=== PATIENT | male | born 1975 | race African-American/Black ===

== ENCOUNTER 2020-01-20 19:00 | Emergency (ER) | payer OTHER, SELFPAY ==
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
[2020-01-20 19:21] VITALS: BP 149/92; PULSE 66; RESP 16; TEMP 36.4; O2SAT 100
== END 2020-01-20 19:33 | disposition home or self-care (01) ==
PROVIDERS: Emergency Provider Nurse Practitioner Family
DX: S39.92XA Unspecified injury of lower back, initial encounter (principal); R03.0 Elevated blood-pressure reading, without diagnosis of hypertension; V49.40XA Driver injured in collision with unspecified motor vehicles in traffic accident, initial encounter
CPT/HCPCS: 99201; G0463